=== PATIENT | female | born 1960 | race Caucasian/White ===

== ENCOUNTER 2017-05-25 11:10 | Emergency (ER) | payer MEDICAID ==
[~2017-05-25] VITALS: Ht 154.9 cm; Wt 49.9 kg
[2017-05-25 11:10] VITALS: BP_SYST 114
[2017-05-25] MEDS ORDERED: NACL 0.9% 1,000 ML IV ONE (11:45)
[2017-05-25 11:58] LABS: BASOPHILS % (AUTO) 0.3 % (0.0-2.0); EOSINOPHILS % (AUTO) 1.1 % (0.0-4.0); HEMATOCRIT 33.3 % (36-48); HEMOGLOBIN 10.9 g/dL (12.0-16.0); LYMPHOCYTES # (AUTO) 1.1 K/uL (1.0-5.5); MEAN CORPUSCULAR HEMOGLOBIN 29 pg (27-31); MEAN CORPUSCULAR HGB CONC 33 % (32-36); MEAN CORPUSCULAR VOLUME 89 fL (79.0-98.0); MONOCYTES # (AUTO) 0.7 K/uL (0.0-1.0); MONOCYTES % (AUTO) 23.4 % (1.7-9.3); NEUTROPHILS # (AUTO) 1.4 K/uL (1.8-7.7); NEUTROPHILS % (AUTO) 40.2 % (40.0-70.0); PLATELET COUNT (AUTO) 96 K/uL (130-430); RED BLOOD CELL COUNT(AUTO) 3.76 MIL/uL (4.2-6.2); RED CELL DISTRIBUTION WIDTH 11.3 % (9.0-15.0); WHITE BLOOD COUNT (AUTO) 3.2 K/uL (4.8-10.8)
[2017-05-25 12:10] LABS: CALCIUM 10.5 mg/dL (8.4-11.0); CREATININE 0.4 mg/dL (0.55-1.30); POTASSIUM 3.6 mmol/L (3.5-5.1)
[2017-05-25 13:29] VITALS: BP_SYST 119
== END 2017-05-25 13:29 | disposition home or self-care (01) ==
LOC: SED 11:10
DX: D61.818 Other pancytopenia (principal); E05.90 Thyrotoxicosis, unspecified without thyrotoxic crisis or storm; E83.52 Hypercalcemia
CPT/HCPCS: 36415; 80053; 82330; 83690; 84443; 85025; 93005; 96360; 99285; J7030